=== PATIENT | male | born 1960 | race Caucasian/White ===

== ENCOUNTER 2017-01-03 18:18 | Inpatient (IN) | payer MEDICARE, BC ==
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
--- NOTE | ~2017-01-03 | A ---
[facility] Nutrition Therapy DATE: 01/04/17 Patient: SUNSHINE CARTER Physician: BENITO Address: [address] [place] [address] RD Room/Bed: [address], Zip: [place] [address] Admit Date: 01/03/17 Date of : 60 Height: 5 7 Weight: 171 78 NUTRITIONAL ASSESSMENT: REASON: NPO IN ICU ASSESSMENT PT IS 56 Y.O. MALE ADMITTED FOR HEPATIC ENCEPHALOPATHY PMH: PAST ETOH ABUSE, ESOPHAGITIS, RECURRENT HEPATIC ENCEPHALOPATHY, COPD, HTN, GERD, CKD, PUD, HEPATITIS C, CIRRHOSIS, SEIZURES Anthropometrics: 5'9" (PER RD OBSERVATION), WT: 174# (79 KG), BMI: 25.7 -MULTIPLE HEIGHTS NOTED: 5'7", 6'0" Labs: BUN: 65, CREAT: 2.8, ALB: 3.2, NA+:146, GFR: 24.1 Meds: PROPOFOL, NACL, PROTONIX, LACTULOSE I/O & Bowel function: 633/820; ORAL NG TUBE IN PLACE Skin Integrity: PEDAL/ANKLE TRACE EDEMA Estimated Nutrition Needs: 1581-4311 KCAL (25-30 KCAL/KG BW) 79-102 G PRO (1.0-1.3 G PRO/KG BW) FLUIDS CONSISTENT W/KCAL NEEDS OR MANAGE PER MD Assessment: CHART REVIEWED AND EVENTS NOTED. PT SEEN FOR NPO IN ICU ASSESSMENT. PT CURRENTLY INTUBATED AND SEDATED (W/PROPOFOL AT RATE OF 16.3 ML/HR PROVIDING ~430 KCAL FROM LIPIDS). PER RN AND CHART, PT FOUND DOWN AT HOME, ADMITTED FOR DX ABOVE. NO FAMILY IN ROOM AT THIS TIME. RD TO FOLLOW. SEE RECOMMENDATIONS BELOW. NO CURRENT PLANS IN PLACE FOR ALTERNATIVE NUTRITION SUPPORT AT THIS TIME. Dx: INADEQUATE ORAL INTAKE R/T DX, CURRENT CONDITION AEB NPO STATUS, PT INTUBATED AND SEDATED. Intervention: 1. NPO Monitoring, Evaluation and Goals: 1. ENTERAL NUTRITION; PROVIDE ~80-100% ESTIMATED NUTRIENT NEEDS 2. ORAL INTAKE; ADVANCE DIET PER ENVIRONMENTAL SERVICE AIDE/TOLERATE DIET W/NO C/O N/V/D (PO>50%) 3. LABS; WNL MONITOR: -WEIGHTS [facility] Nutrition Therapy DATE: 01/04/17 Patient: SUNSHINE CARTER Physician: BENITO Address: [address] Room/Bed: [address], Zip: [place] [address] Admit Date: 01/03/17 Date of : [birth year] Height: 5 7 Weight: 171 78 -PLANS FOR SUPPORT -SEDATION RATE -LABS Recommendations: 1. ONCE MEDICALLY FEASIBLE AND PT EXTUBATED, ADVANCE DIET PER ENVIRONMENTAL SERVICE AIDE + 2 GM NA/LOW FAT DIET 2'PMH 2. IF PT REMAINS INTUBATED FOR >24 HOURS, RECOMMEND TO BEGIN ALTERNATIVE NUTRITION SUPPORT OF JEVITY 1.5 @ 20 ML/HR, ADVANCE 10 ML q 6 HOURS TO GOAL RATE OF 60 ML/HR -PROVIDES 2160 KCAL, 92 G PRO, 1094 ML FREE H20 ADD FREE H20 FLUSHES PER MD RD WILL F/U PER PROTOCOL PT IS SEVERELY COMPROMISED Respectfully, SLOANE ARENAS MS, RD, LD Food and Nutritional Services [facility] cc: client file
--- NOTE | ~2017-01-03 | DS ---
Unit #: [id number] #: [id number] Patient: SUNSHINE CARTER [id number] [address] [address] [id number] I MR#: [id number] NAME: SUNSHINE CARTER ROOM: 572 Age: 56 Sex: M Admission Date: 01/03/2017 : 1960 Discharge Date: 01/08/2017 Attending Physician: Sean Jeter M.D. Primary Care Physician: Cecilio Andujar M.D. DISCHARGE SUMMARY PRINCIPAL DISCHARGE DIAGNOSES 1. Recurrent hepatic encephalopathy. 2. Possible community-acquired pneumonia with Enterobacter cloacae. 3. Acute on chronic kidney disease stage 3. 4. Anemia. 5. Thrombocytopenia. 6. Chronic low back pain. 7. Chronic insomnia. 8. Chronic tobacco use. 9. Respiratory failure, acute. 10. History of hepatitis C. 11. Cirrhosis of the liver. 12. Gallstones. 13. Osteoporosis. 14. Benign prostatic hypertrophy. 15. History of peptic ulcer disease. PROCEDURES 1. Right internal jugular central line placement on 01/03/2017. 2. Endotracheal intubation on 01/03/2017. CONSULTANTS 1. Dr. Jordan Saavedra - Renal Services. 2. Dr. Mcgregor - Pulmonary Services. 3. Dr. Prasad - GI Services. REASON FOR HOSPITALIZATION The patient is a 56-year-old white male with a history of recurrent hepatic encephalopathy, history of noncompliance with medications, cirrhosis of the liver, hepatitis C treated, chronic low back pain, tobacco use, chronic insomnia, chronic anemia, chronic thrombocytopenia, gallstones, history of peptic ulcer disease, osteoporosis, BPH. He apparently had some nausea, vomiting and diarrhea for which he had held his lactulose for a few days. He was then found down by his family at home and was brought to the emergency room obtunded. Ammonia level was over 400. He had acute kidney injury and tachycardia. Central line was placed. Lactulose was placed per NG-tube. He was intubated, admitted to the ICU. On admission, his cardiac enzymes were normal. Ammonia level was 416. CO2 was 13, BUN 73, creatinine 3.8. GFR of 16.7. Alcohol level was 5. Hemoglobin 12. Coags normal. Urine drug screen positive for benzos and opiates which he is on at home. Urinalysis showed 1+ drug and some hyaline crystals. Chest x-ray showed worsening patchy alveolar disease. Unit #: [id number] #: [id number] Patient: SUNSHINE CATRER CT scan of the head showed no active disease. EKG showed normal sinus rhythm with a T wave abnormality. The patient was started empirically on IV fluids, ventilator support, IV proton pump inhibitors. Urine was sent for creatinine, sodium and CPK level was checked. Lactic acid was checked as well. He was placed on SCDs for DVT prophylaxis. Nephrology, GI and pulmonary services were consulted. He was started on empiric Zosyn for community-acquired pneumonia. He was given Xifaxan and lactulose per his NG-tube. The patient quickly improved. Ammonia fell quickly. Lactic acid was normal. CPK was 372. Urine sodium was 24, urine creatinine was 202. Blood cultures remained no growth to date. The patient was extubated on the . Ammonia level continued to improve. Renal ultrasound was performed which showed no hydronephrosis. There was a 9 mm cyst in the left kidney. Sputum culture grew Enterobacter cloacae which was sensitive to Zosyn as well as multiple other antibiotics. He was eventually switched to doxycycline p.o. Followup chest x-ray showed no change. His ammonia level this morning is 21 which is fairly stable. His GFR is normal at 83. Sodium slightly low at 133, CO2 is 19. CBC is normal except for hemoglobin of 10.4 and platelet count of 90,000. He is being discharged home. He is to follow up with Dr. Andujar in one week. He is on a 2 g sodium diet. 1. He was given a prescription for doxycycline 100 mg b.i.d. for an additional six days for a full ten day course. 2. Lactulose 30 mL p.o. t.i.d. 3. Xifaxan 550 mg b.i.d. 4. Furosemide 40 mg daily p.r.n. for edema. 5. Multivitamins one daily. 6. It was advised that his oxycodone and Ambien be discontinued. 7. He is on milk thistle 200 mg daily. 8. Protonix 40 mg daily. 9. Calcium plus D, one p.o. b.i.d. 10. B12 1000 mcg daily. 11. D3 1000 units daily. Need a followup CBC and BMP in the office with Dr. Andujar. He is to follow up with Dr. Prasad per his own instructions. Dictated by... Sean Jeter M.D. RISSA/olive TD: 01/09/2017 10:58 JOB #: [id number] DISCHARGE SUMMARY Page 1 of 1 X Sean Jeter MD X DISCHARGE SUMMARY
--- NOTE | ~2017-01-03 | HP ---
Unit #: [id number] #: [id number] Patient: SUNSHINE CARTER [id number] [address] [address] [id number] I MR#: [id number] NAME: SUNSHINE CARTER ROOM: CIC2 Age: 56 Sex: M Admission Date: 01/03/2017 : 1960 Attending Physician: Sean Jeter M.D. Primary Care Physician: Cecilio Andujar M.D. HISTORY AND PHYSICAL HISTORY OF PRESENT ILLNESS This is a 56-year-old white male with history of hepatic encephalopathy - recurrent, history of noncompliance with medications, cirrhosis of the liver, hepatitis C - treated, chronic low back pain, tobacco use, chronic insomnia, chronic anemia, chronic thrombocytopenia, gallstones, history of peptic ulcer disease, osteoporosis and BPH. Apparently was found down by his family at home, brought to the emergency room, obtunded. Ammonia level was over 400, acute kidney injury, vital signs essentially stable except for tachycardia. Patient placed on the ventilator. Central line, NG tube, lactulose per NG tube. Admitted to the ICU. Currently appears to be stable. Weaning off the vent, but the patient is still obtunded. ALLERGIES He has no known medical allergies. MEDICATIONS Medications are unknown, as we are unable to get it from the patient. When he was discharged last admission in October of this year, his medicines were milk thistle 200 mg daily, lactulose 40 mg t.i.d., magnesium oxide 400 mg t.i.d., Xifaxan 550 mg b.i.d., Ambien 10 mg p.o. q.h.s. p.r.n., furosemide 40 mg daily p.r.n., multivitamin 1 daily, oxycodone 10 mg q.6 hours p.r.n., Aldactone 100 mg daily p.r.n., Protonix 40 mg b.i.d., calcium b.i.d., vitamin B12 - 1,000 mcg daily, vitamin D3 - 1,000 units daily. PAST MEDICAL HISTORY 1. History of recurrent hepatic encephalopathy. 2. History of noncompliance with medications. 3. Cirrhosis. 4. Hepatitis C, treated. 5. Chronic thrombocytopenia. 6. Chronic anemia. 7. Alcohol withdrawal seizures in the past. 8. Chronic disequilibrium syndrome. 9. COPD. 10. Tobacco use. 11. Chronic insomnia. 12. GE reflux disease. 13. Peptic ulcer disease. 14. Osteoporosis. 15. Chronic low back pain. 16. Cholelithiasis. PAST SURGICAL HISTORY Unit #: [id number] #: [id number] Patient: SUNSHINE CARTER 1. Bilateral blepharoplasty. 2. Left total knee replacement. 3. Right elbow laceration. 4. Left elbow laceration. 5. Tonsillectomy. 6. Left shoulder fracture repair. 7. Left hip replacement. SOCIAL HISTORY Single. Smokes a pack of cigarettes daily. No alcohol or street drug use. FAMILY HISTORY Family history is noncontributory. PHYSICAL EXAM GENERAL: Again, he is obtunded. VITALS: He has remained afebrile. His initial pulse was 115; currently it is in the 70s and regular. Initially respiratory rate was 22 in the ER; currently 18 on the vent. Blood pressure in the ER was 162/87; currently 145/88 with an O2 sat of 100%. In the ER his O2 sat was 99% on 100% non-rebreather mask. HEENT: Unremarkable, except for tubes being place. NECK: Neck was supple without JVD, bruits, adenopathy or thyromegaly. CHEST: Clear to auscultation. CARDIOVASCULAR: Heart has a regular rate and rhythm without any murmurs, rubs or gallops. ABDOMEN: Abdomen was soft, nondistended with hyperactive bowel sounds and no hepatosplenomegaly. EXTREMITIES: Extremities showed no clubbing, cyanosis or edema. SCDs are on. /RECTAL: Deferred. NEUROLOGIC: Exam is unobtainable, although I am not able to get any asterixis. DIAGNOSTIC STUDIES LABORATORY: Cardiac enzymes normal x1 set. Ammonia level 416. Original CO2 was 13, currently it is 19. BUN was 73, now 65. Creatinine 3.8, now 2.8. GFR was 16.7, now 24.1. Alcohol level was 5. Hemoglobin 12. Coags normal. Urine drug screen positive for benzodiazepines and opiates. Urinalysis - 1+ blood, crystals. IMAGING: Chest x-ray - ET tube okay. Worsening patchy alveolar disease. CT scan of the head reportedly shows no active disease. CARDIOVASCULAR: EKG - Normal sinus rhythm, T abnormality. IMPRESSION 1. Recurrent hepatic encephalopathy. 2. Acute kidney injury. 3. Cirrhosis. 4. History of hepatitis C. 5. Chronic anemia. 6. Chronic thrombocytopenia. 7. BPH. 8. Tobacco use. 9. Chronic low back pain. 10. History of peptic ulcer disease. Unit #: [id number] #: [id number] Patient: SUNSHINE CARTER 11. Osteoporosis. 12. History of noncompliance. 13. Microscopic hematuria with positive blood, dipstick with negative microscopic evaluation for RBCs. PLAN Vent support. IV fluids. IV proton pump inhibitors. Check urine for creatinine, urine sodium, CPK. Recheck the ammonia level, lactic acid level. SCDs for DVT prophylaxis. Nephrology, GI and pulmonary services have been consulted. He is on empiric antibiotics. Will give Xifaxan and lactulose per NG tube and follow labs. Dictated by Sean Jeter M.D. RISSA/negrita TD: 01/04/2017 07:45 JOB #: [id number] HISTORY AND PHYSICAL Page 1 of 1 X Sean Jeter MD X HISTORY AND PHYSICAL
--- NOTE | ~2017-01-03 | CO ---
Unit #: [id number] #: [id number] Patient: SUNSHINE CARTER [id number] [address] [place], [place] [address] [id number] MR#: [id number] NAME: SUNSHINE CARTER ROOM: CIC2 Age: 56 Sex: M Admission Date: 01/03/2017 : 1960 Attending Physician: Sean Jeter M.D. Primary Care Physician: Cecilio Andujar M.D. Consultation Date: 01/04/2017 CONSULTATION REPORT REASON FOR CONSULTATION Renal failure. Thank you very much for asking us to see this patient in consultation. HISTORY OF PRESENT ILLNESS This patient is a 56-year-old gentleman, who apparently was found unresponsive at home, who has a history of underlying cirrhosis felt secondary to hepatitis C although treated, also history of EtOH abuse in the past, although apparently none recently, who upon presentation noted to have BUN and creatinine 73 and 3.8. Because of this, we were asked to see the patient. The patient was started on fluids. He subsequently was intubated on the ventilator currently. No family members available and the patient is unresponsive. PAST MEDICAL HISTORY History of hepatitis C, history of cirrhosis, history of hepatic encephalopathy, history of anemia, history of thrombocytopenia, history of gastroesophageal reflux disease, history of cholelithiasis, history of peptic ulcer disease, history of COPD, history of BPH, history of EtOH, withdrawal seizures in the past, history of chronic back pain, history of multiple joint surgeries, history of noncompliance to medications. ALLERGIES No known drug allergies. SOCIAL HISTORY Positive smoker. No alcohol recently. No IV drugs. CURRENT MEDICINES Include lactulose, propofol, fentanyl. He is on half-normal saline with 1.5 amps of bicarb at 100 mL an hour. He is on Protonix and Zosyn. REVIEW OF SYSTEMS Unable to obtain. PHYSICAL EXAMINATION VITAL SIGNS: T-max 99, pulse 71 to 114, systolic blood pressure 112 to 162 over 60s to 80s. CVP is running 4 to 6. HEENT: Pupils are equal, round, and reactive to light. He is orally intubated. NECK: Supple. No JVD. CARDIAC: He is without a rub. No S3 or S4. LUNGS: Sound fairly clear bilaterally, anterior, and laterally. Unit #: [id number] #: [id number] Patient: SUNSHINE CARTER ABDOMEN: Overweight. Bowel sounds positive. Nontender. Soft. EXTREMITIES: No lower extremity swelling. Pulses are intact in lower extremities. JOINTS: No joint pain, joint swelling. SKIN: No acute rashes. NEUROLOGIC: Appears to be intact motor and sensory grossly. : Perea catheter is in place. DIAGNOSTIC STUDIES LABORATORY RESULTS: UA shows specific gravity of 1.02, no protein, 2 to 5 rbc's, 0 to 2 wbc's, 1+ blood. CPK was just ordered and is pending. ABG showed a pH of 7.489, pCO2 of 25, pO2 of 29, 40%. Sodium this morning is 146, potassium 4.1, chloride 117, bicarb is 19, BUN 65 and creatinine 2.8 down from 73 and 3.8, glucose is 106, albumin is 3.2. In October, when he was discharged from the hospital, he had a creatinine 1.1. Over the last 2 years, it has ranged in 1.1 to 1.9 and overall it looks like it is around 1 to 2 plus. His ammonia level is 416. His hemoglobin 11.4, white count 10,000, platelets 116,000. INR is 1.2. ASSESSMENT AND PLAN 1. Acute kidney injury in this gentleman with increased BUN and creatinine although this is actually improving now. He has a Perea catheter in place with good urine output. He is on IV fluids with bicarb drip. Certainly, I think he probably has a combination of volume depletion plus or minus acute tubular necrosis as cause of his renal failure. Blood cultures are pending. We will continue IV fluids for now. We will check urine sodium, urine eosinophils. Check a renal ultrasound. Otherwise, continue current treatment. We will check full set of labs in the morning. I agree with checking a CPK to rule out rhabdo since he was found down and he had 1+ blood on his urinalysis with only 2 to 5 rbc's. We will continue bicarb drip and will follow. 2. History of cirrhosis/hepatitis C. 3. Hepatic encephalopathy. 4. Respiratory failure, rule out sepsis. Dictated by..Avery Saavedra M.D. TAWNYA/ruddy TD: 01/05/2017 03:24 JOB #: [id number] CONSULTATION REPORT Page 1 of 1 X Mingo Saavedra MD CONSULTATION REPORT
--- NOTE | ~2017-01-03 | CT71 ---
[facility] A Service of [facility] RADIOLOGY TEXT RESULTS PATIENT: SUNSHINE CARTER LOCATION: [facility] 572-01 : 60 UNIT #: [id number] AGE: [address]: Sean Jeter MD SEX: M ORDER DR: [id number] [facility]. [place], [place] [address] [id number] I MR#: [id number] Acc #: [id number] NAME: SUNSHINE CARTER : 1960 SEX: M STUDY DATE/TIME: 01/03/2017 15:29 UNIT: [facility] ROOM: [facility] STUDY DESCRIPTION: CT Head Wo Contrast Attending Physician: Sean Jeter M.D. Ordering Physician: Cecilio Stoll M.D. Primary Care Physician: Cecilio Andujar M.D. MEDICAL IMAGING REPORT This report is preliminary unless electronic signature is present EXAM CT head without contrast DATE OF EXAMINATION 01/03/2017 HISTORY On the ventilator. Sedated. Unresponsive, found down today. Hepatitis C, cirrhosis and hypertension. COMPARISON Noncontrast CT head 10/24/2016. TECHNIQUE This CT exam was performed with one or more of the following radiation dose reduction techniques: automatic exposure control, adjustment of mA and/or kV according to patient size, and iterative reconstruction. FINDINGS Study is degraded by motion, necessitating repeated attempts at imaging. Allowing for significant motion degradation, no acute intracranial hemorrhage, mass lesion, mass effect, midline shift or evidence of evolving infarct. Mild atrophy. No displaced calvarial fracture identified. Right sphenoid sinus disease. Mastoid air cells appear clear. Patient is orally intubated. IMPRESSION 1. The study is significantly degraded by motion despite repeated attempts at imaging. The technologist states the patient is unable to control tremors. No gross acute intracranial findings are identified. Recommend repeat imaging when the patient is able to cooperate. [facility] A Service of [facility] / [facility] RADIOLOGY TEXT RESULTS PATIENT: SUNSHINE CARTER LOCATION: [facility] 572-01 : [birth year] UNIT #: [id number] AGE: [address]: Sean Jeter MD SEX: M ORDER DR: 2. Mild atrophy. 3. Mild right sphenoid sinus disease. Dictated by... Ana Alfonso M.D. THIS IS AN ELECTRONICALLY VERIFIED REPORT Ana Alfonso M.D. at 01/07/2017 8:37 AM MARCELA/roberta TD: 01/03/2017 17:36 JOB #: [id number] MEDICAL IMAGING REPORT Page 1 of 1 COPY
--- NOTE | ~2017-01-03 | CR72 ---
[facility] A Service of [facility] RADIOLOGY TEXT RESULTS PATIENT: SUNSHINE CARTER LOCATION: [address] : [birth year] UNIT #: [id number] AGE: [address]: Sean Jeter MD SEX: M ORDER DR: [id number] [facility] [address] [facility]. [place], [place] [address] [id number] I MR#: [id number] Acc #: [id number] NAME: SUNSHINE CARTER : 1960 SEX: M STUDY DATE/TIME: 01/05/2017 5:11 UNIT: [facility] ROOM: [facility] STUDY DESCRIPTION: CR Chest Single View Portable Attending Physician: Sean Jeter M.D. Ordering Physician: Fidencio Mcgregor M.D. Primary Care Physician: Cecilio Andujar M.D. MEDICAL IMAGING REPORT This report is preliminary unless electronic signature is present EXAM Portable chest, 01/05/2017 HISTORY Respiratory failure. Shortness of air for 3 days. Ventilator. COMPARISON STUDIES 01/03/2017 FINDINGS Two frontal views of the chest demonstrate the patient significantly rotated to the right. Tubes and lines appear stable. No pneumothorax. Mild bilateral interstitial opacities are unchanged. Heart size and mediastinum are stable. IMPRESSION 1. Rotated exam. Tubes and lines appear stable. No pneumothorax. 2. No interval change in mild bilateral interstitial opacities. Dictated by... Hernandez Pineda M.D. THIS IS AN ELECTRONICALLY VERIFIED REPORT Hernandez Pineda M.D. at 01/06/2017 8:11 AM KYLE/leena TD: 01/06/2017 00:02 JOB #: [id number] MEDICAL IMAGING REPORT Page 1 of 1 COPY
--- NOTE | ~2017-01-03 | CR72 ---
[facility] A Service of [facility] RADIOLOGY TEXT RESULTS PATIENT: SUNSHINE CARTER LOCATION: [facility] 572-01 : 60 UNIT #: [id number] AGE: [address]: Sean Jeter MD SEX: M ORDER DR: [id number] [address] [place], [place] [address] [id number] I MR#: [id number] Acc #: [id number] NAME: SUNSHINE CARTER : 1960 SEX: M STUDY DATE/TIME: 01/06/2017 3:29 UNIT: [facility] ROOM: [facility] STUDY DESCRIPTION: CR Chest Single View Portable Attending Physician: Sean Jeter M.D. Ordering Physician: Fidencio Mcgregor M.D. Primary Care Physician: Cecilio Andujar M.D. MEDICAL IMAGING REPORT This report is preliminary unless electronic signature is present EXAM Portable chest HISTORY Respiratory failure for 3 days. Endotracheal tube removal. FINDINGS Today's portable view of the chest is compared with yesterday's study. The endotracheal tube has been removed. There is mild interstitial prominence without focal infiltrates and the central venous catheter is in good position. Dictated by... Floyd Singh M.D. THIS IS AN ELECTRONICALLY VERIFIED REPORT Floyd Snigh M.D. at 01/06/2017 9:54 PM FEL/psc TD: 01/06/2017 19:13 JOB #: [id number] MEDICAL IMAGING REPORT Page 1 of 1 COPY
--- NOTE | ~2017-01-03 | EKG ---
PATIENT: SUNSHINE CARTER UNIT #: [id number] Ventricular Rate: 94 BPM Atrial Rate: 94 BPM P-R Interval: 158 ms QRS Duration: 84 ms Q-T Interval: 380 ms QTC Calculation(Bezet): 475 ms P Drummond: 84 degrees Calculated R Drummond: 76 degrees Calculated T Drummond: -45 degrees Diagnosis Line: Normal sinus rhythm Diagnosis Line: Abnormal QRS-T angle, consider primary T wave Diagnosis Line: abnormality Diagnosis Line: Abnormal ECG Diagnosis Line: When compared with ECG of 24-OCT-2016 16:51, Diagnosis Line: No significant change was found Diagnosis Line: Confirmed by JOSHUA BAGLEY MD ([id number]) on 01/04/2017 Diagnosis Line: 6:17:44 AM INTERPRETING MD: YUDI BHAKTA
--- NOTE | ~2017-01-03 | CR72 ---
[facility] A Service of [facility] RADIOLOGY TEXT RESULTS PATIENT: SUNSHINE CARTER LOCATION: CICCU2 CICCU10-30 : 60 UNIT #: [id number] AGE: [address]: Sean Jeter MD SEX: M ORDER DR: [id number] [facility] [address] [facility]. [place], [place] [address] [id number] I MR#: [id number] Acc #: [id number] NAME: SUNSHINE CARTER : 1960 SEX: M STUDY DATE/TIME: 01/03/2017 16:10 UNIT: [facility] ROOM: 64118 STUDY DESCRIPTION: CR Chest Single View Portable Attending Physician: Sean Jeter M.D. Ordering Physician: Cecilio Stoll M.D. Primary Care Physician: Cecilio Andujar M.D. MEDICAL IMAGING REPORT This report is preliminary unless electronic signature is present EXAM Chest x-ray single view portable HISTORY Altered mental status, unresponsive, endotracheal tube. Started today. ET tube placement. TECHNIQUE Single frontal portable view of the chest timed 16:10 on 01/03/2017 compared to 10/24/2016. FINDINGS Interval placement of an endotracheal tube which terminates about 2-3 cm above the booker. Heart size is top normal. There is some apparent underlying chronic lung disease and I believe some superimposed thickening of the peribronchial vascular soft tissues lower lungs and some patchy alveolar disease. There is no pneumothorax. No pleural effusion suspected. IMPRESSION 1. Endotracheal tube satisfactory. 2. Interval worsening in appearance of the lung parenchymal markings with thickening of peribronchial vascular soft tissues lower lungs and probably some patchy alveolar disease. Clinical correlation and follow up suggested. No congestive failure, pneumothorax or pleural effusion suspected. Dictated by... Xiomara Braga M.D. [facility] A Service [facility] RADIOLOGY TEXT RESULTS PATIENT: SUNSHINE CARTER LOCATION: CICCU2 CICCU2 : 60 UNIT #: [id number] AGE: [address]: Sean Jeter MD SEX: M ORDER DR: THIS IS AN ELECTRONICALLY VERIFIED REPORT Xiomara Braga M.D. at 01/04/2017 8:06 AM SAC/pcl TD: 01/03/2017 20:12 JOB #: [id number] MEDICAL IMAGING REPORT Page 1 of 1 COPY
--- NOTE | ~2017-01-03 | FU ---
[facility] Nutrition Therapy DATE: 01/07/17 Patient: SUNSHINE EMMA Physician: BENITO Address: [address] [place] [address] RD Room/Bed: [address] [place] [address], Zip: [place] [address] Admit Date: 01/03/17 Date of : 60 Height: 5 7 Weight: 191 87 NUTRITION MONITORING/FOLLOW-UP: Reason: Nutrition follow-up Anthropometrics: Ht: 5'9" Adm wt: 79.1 kg (174#) BMI: 25.7 Current wt: 86.8 kg (191#) Labs: Ca++ 7.8, Alb 2.5, NH3+ 39, Phos 1.8 Meds: Vitamin B12, Protonix, D5% I&O's: 1249/774, last BM 01/07 (diarrhea) Skin: Stasis dermatitis (BLE/gonzalez), bruising (BUE), scratches (BLE, abd), no edema noted Assessment: Chart reviewed, events noted. Pt was transferred from ICU to [facility] yesterday (01/06). Pt is currently on a 2 gm sodium diet. Pt reported feeling very well and having a great appetite, consuming ~75-100% of meals. Pt reported no N/V. See recommendations below. Dx: Inadequate oral intake RT Dx, clinical condition AEB NPO status, pt intubated and sedated. -RESOLVED New Dx: Undesirable food choices RT Dx, PMH AEB elevated ammonia levels. Intervention: 1. 2 gm sodium diet Monitoring, Evaluation and Goals: 1. PO intake; consume >75% of meals -MET 2. Labs; WNL -IN PROGRESS Recommendations: 1. Add low fat diet restriction d/t hepatic encephalopathy. Status: Pt is at a mild nutritional risk. RD will f/u per protocol. Respectfully, [facility] Nutrition Therapy DATE: 01/07/17 Patient: SUNSHINE CARTER Physician: BENITO Address: [address] Room/Bed: [address] [place] [address], Zip: [place] [address] Admit Date: 01/03/17 Date of : [birth year] Height: 5 7 Weight: 191 87 Sri Baldwin, Power Plant Superintendent Adriana Garrison MS, RD, LD Food and Nutritional [facility] cc: client file
--- NOTE | ~2017-01-03 | US77 ---
[facility] A Service of [facility] RADIOLOGY TEXT RESULTS PATIENT: SUNSHINE CARTER LOCATION: [address] : [birth year] UNIT #: [id number] AGE: [address]: Sean Jeter MD SEX: M ORDER DR: [id number] [facility] [address] [facility]. [place], [place] [address] [id number] I MR#: [id number] Acc #: [id number] NAME: SUNSHINE CARTER : 1960 SEX: M STUDY DATE/TIME: 01/04/2017 20:17 UNIT: CICCU2 ROOM: [facility] STUDY DESCRIPTION: US Kidney Bilateral Complete Attending Physician: Sean Jeter M.D. Ordering Physician: Coby Saavedra M.D. Primary Care Physician: Cecilio Andujar M.D. MEDICAL IMAGING REPORT This report is preliminary unless electronic signature is present EXAM Bilateral renal ultrasound INDICATIONS Elevated BUN and creatinine with a BUN of 65 and creatinine of 2.8, acute renal failure. COMPARISON CT scan 03/09/2016. No renal stones visible. FINDINGS Right kidney is 10.3 cm in length. There is no masses or hydronephrosis visible but gallbladder is visualized gallstones are present. Bladder is collapsed around a Perea catheter. Left kidney is about the same size. It seems to have a small calcification in the lower pole possibly representing a stone and there is a probable cyst measuring 9 mm in diameter. IMPRESSION 1. No hydronephrosis on either side and the kidneys are normal in size. 2. The Perea catheter is in the bladder and the bladder is collapsed. 3. There is a hypoechoic 9 mm area seen in the left kidney suggesting a cyst and there may be a small stone in the left kidney. No stones were visible 03/09/[address] scan. Dictated by... Floyd Singh M.D. THIS IS AN ELECTRONICALLY VERIFIED REPORT Floyd Singh M.D. at 01/05/2017 8:04 PM FEL/oli TD: 01/05/2017 19:04 [facility] Service of [facility] RADIOLOGY TEXT RESULTS PATIENT: SUNSHINE CARTER LOCATION: CIC2 CICCU2-07 : 60 UNIT #: [id number] AGE: [address]: Sean Jeter MD SEX: M ORDER DR: JOB #: [id number] MEDICAL IMAGING REPORT Page 1 of 1 COPY
--- NOTE | ~2017-01-03 | CO ---
Unit #: [id number] #: [id number] Patient: SUNSHINE HEMPHILL [id number] [place], [place] [address] [id number] I MR#: [id number] NAME: SUNSHINE HEMPHILL ROOM: [facility] Age: 56 Sex: M Admission Date: 01/03/2017 : 1960 Attending Physician: Sean Jeter M.D. Primary Care Physician: Cecilio Andujar M.D. Consultation Date: 01/04/2017 CONSULTATION REPORT REASON FOR CONSULTATION Respiratory failure, mechanical ventilation. HISTORY OF PRESENT ILLNESS A 56-year-old gentleman with end-stage cirrhosis and hepatic encephalopathy with possible ongoing alcohol use and noncompliance with medication. He apparently was found obtunded by his family. EMS was called, ultimately intubated and currently is in the intensive care unit and cannot add to the history. He also had acute kidney injury and is currently on a bicarb drip. Renal is following. He apparently is quite sedated, but remains on a fentanyl drip and propofol drip. PAST MEDICAL HISTORY Remarkable for hepatic encephalopathy, cirrhosis, hepatitis C, chronic pain, chronic thrombocytopenia followed by Dr. Bardales, history of ulcer disease and esophagitis, tobacco use but no definite COPD identified, history of bacteremia and fungemia, past hospitalizations in 10/2016, apparently has some degree of insomnia and on Ambien. MEDICATIONS At home, no formal med rec sheet is available. Apparently, there has been some confusion long-term with his medications at home, he is on lactulose b.i.d. and in fact he had diarrhea and that dose was decreased. He according to the EHR on magnesium, Xifaxan, Ambien, Lasix, oxycodone 10 mg q.i.d., Aldactone, Protonix, and a variety of vitamin supplements. ALLERGIES No known medical allergies. SOCIAL HISTORY He continues to smoke. He lives at home. FAMILY HISTORY Unobtainable. REVIEW OF SYSTEMS Unobtainable. PHYSICAL EXAMINATION GENERAL: Reveals the patient, who is obtunded on the ventilator. VITAL SIGNS: He is afebrile, pulse 82, respiratory rate is 14, blood pressure is 118/50. He is 5 feet 7 inches, 171 pounds. HEENT: Pupils are equal, round, and reactive to light. Sclerae anicteric. Head, atraumatic. Unit #: [id number] #: [id number] Patient: SUNSHINE HEMPHILL NECK: Supple. No supraclavicular or cervical adenopathy appreciated. There may be a node in his left supraclavicular fossa, but not definitive. CHEST: Somewhat limited exam. Decreased breath sounds. No genoveva wheeze or consolidation. CARDIAC: Reveals regular rate and rhythm. No pathologic murmur, rub, or gallop. ABDOMEN: Soft and nontender. No hepatomegaly or rebound. EXTREMITIES: Reveal no clubbing, cyanosis, or edema. No calf tenderness. SKIN: Warm and dry without rash or diaphoresis. NEUROLOGIC: He is obtunded and cannot cooperate with full neurologic exam. Apparently off sedation, he will become dyssynchronous with the ventilator, is what I was told by nursing staff. DIAGNOSTIC STUDIES IMAGING STUDIES: Chest x-ray, no definite focal infiltrates. LABORATORY RESULTS: Arterial blood gas originally pH 7.34, pCO2 of 27, pO2 of 228 on assist control and 100%. Repeat pH 7.48, pCO2 of 25, PO2 of 229 on assist control of 12 breathing 14, tidal volume is 600, 40%, 5 of PEEP. His creatinine was 3.8, now it is 2.8, sodium 146, venous bicarb 19. He has non-gap acidosis. BNP is 235. INR normal. White blood cell count 10.9, hemoglobin 11.4, platelet count 116. Tox screen positive benzodiazepines, opiates. Urinalysis remarkably unremarkable. Blood cultures pending. CARDIOVASCULAR STUDIES: EKG; nonspecific ST-T wave changes particularly inferiorly. IMPRESSION 1. Respiratory failure, most likely secondary to his profound hepatic encephalopathy with an ammonia level of 416. 2. Cirrhosis hepatitis C, possible alcohol component. Alcohol level is positive. 3. Acute kidney injury. 4. Non-gap acidosis. 5. Chronic narcotic and Ambien use and possible benzodiazepine use per tox screen. 6. Thrombocytopenia. 7. History of ulcer disease, esophagitis. 8. Tobacco use. No active wheezing. 9. History of bacteremia and fungemia in the recent past. PLAN Mechanical ventilatory support with appropriate adjustments. No bicarb is needed from a pulmonary point of view and I will leave IV fluid management to Renal. Doubt pneumonia, but will check surveillance cultures. He currently is on Zosyn and will continue for now. We have no good reason why his ammonia level was so high and decompensated, possibly from decreased dose or noncompliance with lactulose, weaning will be determined by his mental status. Long-term, I would try to avoid sedating medications such as narcotics, benzodiazepines, and Ambien if possible. Thank you very much for allowing me to participate in the care of Mr. Hemphill. Dictated by... Fidencio Mcgregor M.D. Unit #: [id number] #: [id number] Patient: SUNSHINE HEMPHILL SANGEETA/modl TD: 01/05/2017 01:10 JOB #: [id number] Farhat Prasad M.D. CONSULTATION REPORT Page 1 of 1 X Fidencio Mcgregor MD X CONSULTATION REPORT
--- NOTE | ~2017-01-03 | CR72 ---
[facility] A Service of [facility] RADIOLOGY TEXT RESULTS PATIENT: SUNSHINE CARTER LOCATION: [facility] [address]1986-86 : [birth year] UNIT #: [id number] AGE: [address]: Sean Jeter MD SEX: M ORDER DR: [id number] [facility] [address] [facility]. [place], [place] [address] [id number] I MR#: [id number] Acc #: [id number] NAME: SUNSHINE CARTER : 1960 SEX: M STUDY DATE/TIME: 01/03/2017 17:37 UNIT: [facility] ROOM: 50655 STUDY DESCRIPTION: CR Chest Single View Portable Attending Physician: Sean Jeter M.D. Ordering Physician: Cecilio Stoll M.D. Primary Care Physician: Cecilio Andujar M.D. MEDICAL IMAGING REPORT This report is preliminary unless electronic signature is present EXAM Portable chest 01/03 17:37 COMPARISON Same date 1610 hours HISTORY Line placement FINDINGS An AP view is obtained. ET tube remains in good position. NG has been placed with the tip in the stomach. Right IJ line terminates at the cavoatrial junction with no pneumothorax. Chronic lung disease is again noted with no acute findings. CONCLUSION Endotracheal tube, nasoenteric tube and right IJ line in appropriate position. No pneumothorax. Dictated by... Frank Gomez M.D. THIS IS AN ELECTRONICALLY VERIFIED REPORT Frank Gomez M.D. at 01/03/2017 10:17 PM RAH/dannie TD: 01/03/2017 22:05 JOB #: [id number] MEDICAL IMAGING REPORT Page 1 of 1 COPY
[2017-01-03 15:53] LABS: POC - CKMB 4.6 ng/mL (0.0-7.9); POC - TROPONIN <0.05 ng/mL (<=0.05)
[2017-01-03 16:14] LABS: ALBUMIN SERUM 3.7 g/dL (3.5-5.0); BILIRUBIN, DIRECT 0.2 mg/dL (0.0-0.2); BILIRUBIN,INDIRECT 0.6 mg/dL (0.0-0.9); BILIRUBIN,TOTAL 0.8 mg/dL (0.2-2.0); BUN/CREATININE RATIO 19.21; CALCIUM SERUM 9.1 mg/dL (8.4-10.2); CREATININE SERUM 3.8 mg/dL (0.6-1.4); GLOM FILT RATE Estimated 16.7 mL/min (>60); POTASSIUM 4.6 mmol/L (3.5-5.1); PROTEIN TOTAL SERUM 6.8 g/dL (6.0-8.3)
[2017-01-03 16:59] LABS: ARTERIAL BLOOD GAS HCO3 15.3 mmol/L; ARTERIAL BLOOD GAS MET HB 0.8 %sat (0.0-2.0); ARTERIAL BLOOD GAS PCO2 27.8 mmHg (35.0-45.0); ARTERIAL BLOOD GAS pH 7.349 (7.350-7.450)
[2017-01-03 17:01] LABS: ARTERIAL BLOOD GAS ALLEN TEST NORMAL; ARTERIAL BLOOD GAS ART SITE RIGHT RADIAL; ARTERIAL BLOOD GAS VENT MODE AC; ARTERIAL DRAW? YES
[2017-01-03 17:48] LABS: BASOPHIL% 0.4 % (0-2.5); EOSINOPHIL# 0.1 X10e3 (0-0.7); EOSINOPHIL% 1.5 % (0.0-7.0); HEMATOCRIT 35.3 % (38.0-50.0); LYMPHOCYTE# 1.2 X10e3 (1.0-3.5); LYMPHOCYTE% 13.4 % (17.0-45.0); MEAN CELL VOLUME 98.1 FL (83-96); MEAN CORPUSCULAR HEMOGLOBIN 33.3 PG (28-34); MEAN CORPUSCULAR HGB CONC 33.9 g/dL (30-36); MEAN PLATELET VOLUME 7.8 FL (6.5-11.5); MONOCYTE# 1.3 X10e3 (0-1.0); MONOCYTE% 13.9 % (3.0-12.0); NEUTROPHIL# 6.4 X10e3 (1.5-7.1); NEUTROPHIL% 70.8 % (40-75); PLATELET COUNT 154 X10e3 (140-420); RED BLOOD COUNT 3.59 X10e (3.90-5.60); RED CELL DISTRIBUTION WIDTH 13.7 % (11.0-15.5)
[2017-01-03 17:51] LABS: DIFF IND NO
[2017-01-03 18:01] LABS: INR 1.2; PARTIAL THROMBOPLASTIN TIME 25.6 SECONDS (23.5-31.3); PROTHROMBIN TIME (PATIENT) 12.4 SECONDS (9.6-11.5)
[~2017-01-03 18:18] MED LIST: ACETAMINOPHEN PR; AL-MAG HYDROX-S30 M1 PO; AMBIEN CR PO; AMBIEN PO; AMBIEN10 MG GT; AMBIEN10 MG PO; AMBIEN12.5 M1 PO; ANTACID650 MG PO; ATIVAN0.5 MG PO; B-121000 MC2 PO; CALCITRATE + V1 EACH PO; CALCITRATE PO; CARVEDILOL12.5 MG PO; CATAPRES0.1 MG PO; CENTRUM SILVER PO; CHLORDIAZEPOXIDE5 MG PO; CHRONULAC10 GM/151; CITRACAL200 M1 PO; COD LIVER OIL1 CA1 PO; COUMADIN PO; CVS PHARMACY; D3 + K2 DOTS 1,1 TAB PO; DARVOCET-N 1001 TAB PO; DETROL2 M1 PO; DOK100 MG PO; ENALAPRIL MALEA10 MG; ENALAPRIL MALEA10 MG GT; ENALAPRIL MALEA10 MG PO; FAMOTIDINE20 M1 PO; FERRO-TIME325 MG PO; FISH OIL 1,0001 EAC1 PO; FISH OIL 1,0001 EACH PO; FISH OIL 1,001000 M1 PO; FISH OIL 1,001000 MG PO; FISH OIL500 M1 PO; FLOMAX0.4 M1 PO; FOLIC ACID1 MG PO; FOLIC ACID800 MCG PO; FUROSEMIDE40 MG PO; HARVONI PO; HCTZ PO; HYDROCHLOROTH12.5 M1 PO; HYDROCODON-ACE1 EAC5 PO; INCIVEK PO; K-DUR20 ME1 PO; KCL PO; KEPPRA100 MG/ML GT; KEPPRA500 M1 PO; KEPPRA500 MG; KEPPRA500 MG PO; KRISTALOSE20 G/PK1 PO; LACTULOSE; LACTULOSE10 G/15 M1 PO; LACTULOSE10 G/15 M2 PO; LACTULOSE10 G/15 ML GT; LACTULOSE20 GM/30 M PO; LASIX PO; LOPRESSOR PO; LORTAB 5/500 TA1 TA1 PO; LUNESTA1 MG PO; MAG-OX 400400 M1 PO; MAG-OX 400400 MG PO; MAGNESIUM200 MG PO; MAGNESIUM400 M1 PO; MAGNESIUM400 MG PO; MAGOX 400400 MG PO; METHYL GUARD PO; METOPROLOL SUCC50 MG PO; MILK THISTLE1 GM PO; MILK THISTLE200 M1 PO; MILK THISTLE500 MG PO; MULTI VITAMIN1 EACH PO; MULTI-VITAMIN1 EAC1 PO; MULTI-VITAMIN1 TAB; MULTIPLE VITAMI1 T11 PO; MULTIVITAMIN1 UDCAP PO; MULTIVITAMINS1 EAC2 PO; NICOTINE PATCH1 EACH TD; NICOTINE TRANSD21 MG EXT; NORCO 10-325 TA1 TAB PO; NORCO 5/325 TAB1 TAB PO; OS CAL DOB; OS-CAL 500500 MG PO; OXYCODONE H5 MG/5 ML GT; OXYCODONE HCL10 MG; OXYCODONE HCL10 MG PO; PANTOPRAZOLE SO40 MG PO; PEGASYS180 MCG/M1 SQ; PERCOCET 10/31 UDTA1 PO; PERCOCET 10/3251 TAB PO; PERCOCET 5-3251 TAB PO; PHENERGAN12.5 MG PO; PHENERGAN25 M1 PO; PHENERGAN25 MG PO; POTABA500 M1 PO; PRILOSEC PO; PRILOSEC20 MG PO; PROCRIT20000 U/ML IJ; PROTONIX PO; PROTONIX40 MG/BLIS GT; RIBASPHERE200 MG PO; ROXICODONE5 MG PO; SPIRONOLACTONE100 MG PO; SPIRONOLACTONE50 MG PO; TOPROL XL50 MG PO; TYLOX 5-500 CA1 EACH PO; VASOTEC10 MG PO; VASOTEC20 MG PO; VFEND50 MG PO; VIT B-12 PO; VIT D PO; VITAMIN B-121000 MCG PO; VITAMIN B12 PO; VITAMIN B122500 MCG PO; VITAMIN D-32000 UNI1 PO; VITAMIN D31000 UNI1 PO; VITAMIN D32000 UNIT PO; VORICONAZOLE200 MG PO; XIFAXAN550 MG PO; ZINC SULFATE220 M1 PO; ZINC50 M1 PO; ZOLPIDEM TARTRA10 MG PO; ZOLPIDEM TARTRAT5 MG PO; [UNRECOGNIZED DRUG - OTHER] DOB; [UNRECOGNIZED DRUG - OTHER] GT; [UNRECOGNIZED DRUG - OTHER] PO; [UNRECOGNIZED DRUG - OTHER] PO; [UNRECOGNIZED DRUG - OTHER] PO; [UNRECOGNIZED DRUG - OTHER] PO; [UNRECOGNIZED DRUG - OTHER] PO; [UNRECOGNIZED DRUG - OTHER] PO; [UNRECOGNIZED DRUG - OTHER] PO; [UNRECOGNIZED DRUG - OTHER] PO; [UNRECOGNIZED DRUG - OTHER] PO; [UNRECOGNIZED DRUG - OTHER] PO
[2017-01-03 20:20] LABS: AMPHETAMINE NEG (NEG); BARBITURATES NEG (NEG); BENZODIAZEPINES POS (NEG); COCAINE NEG (NEG); MARIJUANA NEG (NEG); OPIATES POS (NEG); TRICYCLIC ANTIDEPRESSANTS NEG (NEG); U METHADONE NEG (NEG)
[2017-01-03 20:58] LABS: URINE SOURCE CLEAN CATCH
[2017-01-03 21:12] LABS: URINE APPEARANCE CLEAR; URINE BILIRUBIN NEG (NEG); URINE BLOOD 1+ (NEG); URINE COLOR YELLOW; URINE GLUCOSE NEG (NEG); URINE KETONE TRACE (NEG); URINE LEUKOCYTE ESTERASE NEG (NEG); URINE NITRATE NEG (NEG); URINE PH 5.5 (5-8); URINE PROTEIN NEG (NEG); URINE UROBILINOGEN 0.2 MG/DL (NEG)
[2017-01-03 21:15] LABS: CULTURE INDICATED? NO; URINE BACTERIA AUWI NEG (NEGATIVE); URINE SQUAMOUS EPITHELIAL CELL NONE SEEN /[HPF]; UWBCS1 AUWI 0-2 (0-5)
[2017-01-04 04:32] LABS: ARTERIAL BLD GAS O2 SATURATION 98.4 % (90.0-100.0); ARTERIAL BLOOD GAS CARBOXY HB 0.4 %sat (0.0-9.0); ARTERIAL BLOOD GAS MET HB 1.3 %sat (0.0-2.0); ARTERIAL BLOOD GAS PCO2 25.1 mmHg (35.0-45.0); ARTERIAL BLOOD GAS pH 7.489 (7.350-7.450)
[2017-01-04 04:36] LABS: ARTERIAL BLOOD GAS ART SITE LEFT FEMORAL; ARTERIAL BLOOD GAS DELIVERY VENT; ARTERIAL BLOOD GAS VENT MODE AC; ARTERIAL DRAW? YES
[2017-01-04 05:46] LABS: BASOPHIL# 0.1 X10e3 (0-0.3); BASOPHIL% 0.8 % (0-2.5); EOSINOPHIL# 0.2 X10e3 (0-0.7); EOSINOPHIL% 1.5 % (0.0-7.0); HEMATOCRIT 33.7 % (38.0-50.0); HEMOGLOBIN 11.4 gm/dL (13.0-16.0); LYMPHOCYTE# 1.5 X10e3 (1.0-3.5); LYMPHOCYTE% 13.4 % (17.0-45.0); MEAN CELL VOLUME 98.8 FL (83-96); MEAN CORPUSCULAR HEMOGLOBIN 33.3 PG (28-34); MEAN CORPUSCULAR HGB CONC 33.7 g/dL (30-36); MEAN PLATELET VOLUME 7.6 FL (6.5-11.5); MONOCYTE# 1.3 X10e3 (0-1.0); MONOCYTE% 11.4 % (3.0-12.0); NEUTROPHIL% 72.9 % (40-75); PLATELET COUNT 116 X10e3 (140-420); RED BLOOD COUNT 3.41 X10e (3.90-5.60); RED CELL DISTRIBUTION WIDTH 13.6 % (11.0-15.5); WHITE BLOOD COUNT 10.9 X10e3 (4.0-10.5)
[2017-01-04 05:59] LABS: DIFF IND NO
[2017-01-04 06:10] LABS: ALBUMIN SERUM 3.2 g/dL (3.5-5.0); BUN/CREATININE RATIO 23.21; CALCIUM SERUM 8.7 mg/dL (8.4-10.2); CREATININE SERUM 2.8 mg/dL (0.6-1.4); GLOM FILT RATE Estimated 24.1 mL/min (>60); POTASSIUM 4.1 mmol/L (3.5-5.1); PROTEIN TOTAL SERUM 5.9 g/dL (6.0-8.3)
[2017-01-04 12:36] LABS: CREATININE,RANDOM URINE 202 mg/dL; SODIUM URINE RANDOM 24 mmol/L
[2017-01-05 03:46] LABS: ARTERIAL BLD GAS O2 SATURATION 98.5 % (90.0-100.0); ARTERIAL BLOOD GAS CARBOXY HB 0.5 %sat (0.0-9.0); ARTERIAL BLOOD GAS HCO3 23.1 mmol/L; ARTERIAL BLOOD GAS MET HB 1.1 %sat (0.0-2.0); ARTERIAL BLOOD GAS PCO2 30.6 mmHg (35.0-45.0); ARTERIAL BLOOD GAS pH 7.486 (7.350-7.450)
[2017-01-05 03:50] LABS: ARTERIAL BLOOD GAS ALLEN TEST NORMAL; ARTERIAL BLOOD GAS ART SITE RIGHT RADIAL; ARTERIAL BLOOD GAS DELIVERY VENT; ARTERIAL BLOOD GAS VENT MODE A/C; ARTERIAL DRAW? YES
[2017-01-05 05:44] LABS: BASOPHIL% 0.4 % (0-2.5); EOSINOPHIL# 0.3 X10e3 (0-0.7); EOSINOPHIL% 3.4 % (0.0-7.0); HEMATOCRIT 31.8 % (38.0-50.0); LYMPHOCYTE# 1.6 X10e3 (1.0-3.5); LYMPHOCYTE% 20.4 % (17.0-45.0); MEAN CELL VOLUME 97.9 FL (83-96); MEAN CORPUSCULAR HEMOGLOBIN 33.8 PG (28-34); MEAN CORPUSCULAR HGB CONC 34.5 g/dL (30-36); MEAN PLATELET VOLUME 7.5 FL (6.5-11.5); MONOCYTE# 1.2 X10e3 (0-1.0); MONOCYTE% 15.3 % (3.0-12.0); NEUTROPHIL# 4.8 X10e3 (1.5-7.1); NEUTROPHIL% 60.5 % (40-75); PLATELET COUNT 111 X10e3 (140-420); RED BLOOD COUNT 3.25 X10e (3.90-5.60); RED CELL DISTRIBUTION WIDTH 13.8 % (11.0-15.5)
[2017-01-05 05:53] LABS: DIFF IND NO
[2017-01-05 06:35] LABS: BILIRUBIN,TOTAL 0.9 mg/dL (0.2-2.0); CALCIUM SERUM 8.4 mg/dL (8.4-10.2); GLOM FILT RATE Estimated 36.2 mL/min (>60); MAGNESIUM 2.2 mg/dL (1.6-3.0); PHOSPHOROUS 3.7 mg/dL (2.5-4.6); POTASSIUM 3.6 mmol/L (3.5-5.1); PROTEIN TOTAL SERUM 5.7 g/dL (6.0-8.3)
[2017-01-05 12:11] LABS: ARTERIAL BLD GAS O2 SATURATION 98.6 % (90.0-100.0); ARTERIAL BLOOD GAS ALLEN TEST NORMAL; ARTERIAL BLOOD GAS ART SITE RIGHT RADIAL; ARTERIAL BLOOD GAS CARBOXY HB 0.3 %sat (0.0-9.0); ARTERIAL BLOOD GAS DELIVERY VENT; ARTERIAL BLOOD GAS MET HB 1.1 %sat (0.0-2.0); ARTERIAL BLOOD GAS PCO2 32.8 mmHg (35.0-45.0); ARTERIAL BLOOD GAS VENT MODE CPAP; ARTERIAL BLOOD GAS pH 7.473 (7.350-7.450); ARTERIAL DRAW? YES
[2017-01-06 04:47] LABS: ARTERIAL BLD GAS O2 SATURATION 94.9 % (90.0-100.0); ARTERIAL BLOOD GAS CARBOXY HB 0.6 %sat (0.0-9.0); ARTERIAL BLOOD GAS HCO3 23.7 mmol/L; ARTERIAL BLOOD GAS MET HB 0.7 %sat (0.0-2.0); ARTERIAL BLOOD GAS PCO2 31.3 mmHg (35.0-45.0); ARTERIAL BLOOD GAS pH 7.487 (7.350-7.450)
[2017-01-06 04:53] LABS: ARTERIAL BLOOD GAS PO2 73.9 mmHg (80.0-100)
[2017-01-06 04:54] LABS: ARTERIAL BLOOD GAS ALLEN TEST NORMAL; ARTERIAL BLOOD GAS ART SITE RIGHT RADIAL; ARTERIAL DRAW? YES
[2017-01-06 05:48] LABS: BASOPHIL% 0.4 % (0-2.5); EOSINOPHIL# 0.5 X10e3 (0-0.7); EOSINOPHIL% 6.4 % (0.0-7.0); HEMATOCRIT 29.4 % (38.0-50.0); HEMOGLOBIN 9.9 gm/dL (13.0-16.0); LYMPHOCYTE# 1.6 X10e3 (1.0-3.5); LYMPHOCYTE% 20.7 % (17.0-45.0); MEAN CELL VOLUME 97.9 FL (83-96); MEAN CORPUSCULAR HEMOGLOBIN 33.1 PG (28-34); MEAN CORPUSCULAR HGB CONC 33.8 g/dL (30-36); MEAN PLATELET VOLUME 7.8 FL (6.5-11.5); MONOCYTE% 13.7 % (3.0-12.0); NEUTROPHIL# 4.5 X10e3 (1.5-7.1); NEUTROPHIL% 58.8 % (40-75); PLATELET COUNT 95 X10e3 (140-420); RED CELL DISTRIBUTION WIDTH 13.6 % (11.0-15.5); WHITE BLOOD COUNT 7.6 X10e3 (4.0-10.5)
[2017-01-06 06:47] LABS: DIFF IND YES
[2017-01-06 06:56] LABS: ANISOCYTOSIS SL; HYPOCHROMIA SL; PLATELET ESTIMATE DECREASED (NORMAL)
[2017-01-06 06:57] LABS: OVALOCYTES PRESENT; POIKILOCYTOSIS SL
[2017-01-06 07:11] LABS: ALBUMIN SERUM 2.6 g/dL (3.5-5.0); BILIRUBIN,TOTAL 1.3 mg/dL (0.2-2.0); BUN/CREATININE RATIO 24.28; CALCIUM SERUM 8.1 mg/dL (8.4-10.2); CREATININE SERUM 1.4 mg/dL (0.6-1.4); GLOM FILT RATE Estimated 55.8 mL/min (>60); MAGNESIUM 1.7 mg/dL (1.6-3.0); PHOSPHOROUS 2.7 mg/dL (2.5-4.6); POTASSIUM 3.5 mmol/L (3.5-5.1); PROTEIN TOTAL SERUM 5.1 g/dL (6.0-8.3)
[2017-01-07 06:27] LABS: BASOPHIL% 0.4 % (0-2.5); EOSINOPHIL# 0.5 X10e3 (0-0.7); EOSINOPHIL% 6.3 % (0.0-7.0); HEMATOCRIT 30.2 % (38.0-50.0); HEMOGLOBIN 10.2 gm/dL (13.0-16.0); LYMPHOCYTE# 1.1 X10e3 (1.0-3.5); LYMPHOCYTE% 14.2 % (17.0-45.0); MEAN CELL VOLUME 98.4 FL (83-96); MEAN CORPUSCULAR HEMOGLOBIN 33.2 PG (28-34); MEAN CORPUSCULAR HGB CONC 33.7 g/dL (30-36); MEAN PLATELET VOLUME 7.5 FL (6.5-11.5); MONOCYTE# 0.9 X10e3 (0-1.0); MONOCYTE% 11.2 % (3.0-12.0); NEUTROPHIL# 5.4 X10e3 (1.5-7.1); NEUTROPHIL% 67.9 % (40-75); PLATELET COUNT 91 X10e3 (140-420); RED BLOOD COUNT 3.07 X10e (3.90-5.60); RED CELL DISTRIBUTION WIDTH 13.5 % (11.0-15.5); WHITE BLOOD COUNT 7.9 X10e3 (4.0-10.5)
[2017-01-07 06:28] LABS: DIFF IND NO
[2017-01-07 07:09] LABS: ALBUMIN SERUM 2.5 g/dL (3.5-5.0); CALCIUM SERUM 7.8 mg/dL (8.4-10.2); GLOM FILT RATE Estimated 83.8 mL/min (>60); MAGNESIUM 1.9 mg/dL (1.6-3.0); PHOSPHOROUS 1.8 mg/dL (2.5-4.6)
[2017-01-08 06:31] LABS: HEMATOCRIT 30.5 % (38.0-50.0); HEMOGLOBIN 10.4 gm/dL (13.0-16.0); MEAN CORPUSCULAR HEMOGLOBIN 33.4 PG (28-34); MEAN CORPUSCULAR HGB CONC 34.1 g/dL (30-36); MEAN PLATELET VOLUME 7.8 FL (6.5-11.5); RED BLOOD COUNT 3.12 X10e (3.90-5.60); RED CELL DISTRIBUTION WIDTH 13.4 % (11.0-15.5); WHITE BLOOD COUNT 7.1 X10e3 (4.0-10.5)
[2017-01-08 06:43] LABS: CALCIUM SERUM 8.2 mg/dL (8.4-10.2); GLOM FILT RATE Estimated 83.8 mL/min (>60); POTASSIUM 4.4 mmol/L (3.5-5.1)
[2017-01-08] MEDS ORDERED: VIBRAMYCIN100 M1 PO (18:35)
== END 2017-01-08 19:14 | disposition home or self-care (01) | DRG 208 ==
LOC: CED 18:18 → CEDOF 18:35 → CICCU2 01-04 01:50 → C5C 01-06 20:00
PROVIDERS: Emergency Medicine; Internal Medicine; Physician Assistant Medical
PROC: 5A1945Z Respiratory Ventilation, 24-96 Consecutive Hours (ICD-10-PCS; principal; 2017-01-03)
PROC: 0BH17EZ Insertion of Endotracheal Airway into Trachea, Via Natural or Artificial Opening (ICD-10-PCS; 2017-01-03)
PROC: 05HM33Z Insertion of Infusion Device into Right Internal Jugular Vein, Percutaneous Approach (ICD-10-PCS; 2017-01-03)
PROC: B543ZZA Ultrasonography of Right Jugular Veins, Guidance (ICD-10-PCS; 2017-01-03)
DX: J96.00 Acute respiratory failure, unspecified whether with hypoxia or hypercapnia (principal); N17.0 Acute kidney failure with tubular necrosis; J15.6 Pneumonia due to other Gram-negative bacteria; D69.6 Thrombocytopenia, unspecified; E87.2 Acidosis; K74.60 Unspecified cirrhosis of liver; N18.3 Chronic kidney disease, stage 3 (moderate); F17.210 Nicotine dependence, cigarettes, uncomplicated; D53.9 Nutritional anemia, unspecified; M54.5 Low back pain; F51.04 Psychophysiologic insomnia; Z86.19 Personal history of other infectious and parasitic diseases; K80.80 Other cholelithiasis without obstruction; M81.0 Age-related osteoporosis without current pathological fracture; N40.0 Benign prostatic hyperplasia without lower urinary tract symptoms; Z91.14 Patient's other noncompliance with medication regimen; R31.29 Other microscopic hematuria; Z96.652 Presence of left artificial knee joint; Z96.642 Presence of left artificial hip joint; K72.90 Hepatic failure, unspecified without coma
CPT/HCPCS: 31500; 36600; 70450; 71010; 76770; 80048; 80053; 80076; 80307; 81003; 82140; 82550; 82553; 82570; 82803; 82947; 83605; 83735; 84100; 84300; 84484; 85025; 85027; 85610; 85730; 87040; 87070; 87077; 87186; 87205; 89190; 93005; 94002; 94003; 94760; 97116; 97163; 97167; 97530; 97535; 99291; C9113; G0480; G8978-GP; G8979-GP; G8987-GO; G8988-GO; J2250; J2543; J3010; J3475; J3480; J7060

== ENCOUNTER → 2017-03-22 | Outpatient (CLI) | payer MEDICARE, BC ==
[~2017-03-22] MED LIST changes: +VIBRAMYCIN100 M1 PO
--- NOTE | ~2017-03-22 | US77 ---
[facility] A Service of [facility] RADIOLOGY TEXT RESULTS PATIENT: SUNSHINE CARTER LOCATION: [facility] : 60 UNIT #: [id number] AGE: [address]: Mingo Saavedra MD SEX: M ORDER DR: [id number] [facility] [address] [facility] [place], [place] [address] [id number] MR#: [id number] Acc #: [id number] NAME: SUNSHINE CARTER : 1960 SEX: M STUDY DATE/TIME: 03/22/2017 12:22 UNIT: [facility] ROOM: STUDY DESCRIPTION: US Kidney Bilateral Complete Attending Physician: Coby Saavedra M.D. Referring Physician: Coby Saavedra M.D. Ordering Physician: Coby Saavedra M.D. Primary Care Physician: Cecilio Andujar M.D. MEDICAL IMAGING REPORT This report is preliminary unless electronic signature is present EXAM Renal ultrasound, 03/22/2017. HISTORY Acute renal failure, abnormal renal function tests on 03/05/2017. Elevated BUN of 30, elevated creatinine of 2.78. Abnormally low GFR of 24. FINDINGS The right kidney measures 10.1 cm while the left kidney measures 10.3 cm in longitudinal dimensions. There is no evidence of hydronephrosis or nephrolithiasis. There are 2 cysts on the left kidney measuring 1 cm and 1.4 cm respectively. No solid mass lesions are identified. There is normal renal cortical echogenicity. Images of the bladder are normal. IMPRESSION 1. Left renal cysts. Otherwise, negative renal ultrasound. 2. Images of the bladder are normal. Dictated by... Salvador Hurt M.D. THIS IS AN ELECTRONICALLY VERIFIED REPORT Salvador Hurt M.D. at 03/23/2017 2:16 PM JUS/kian TD: 03/23/2017 01:49 JOB #: [id number] MEDICAL IMAGING REPORT Page 1 of 1 COPY
[2017-03-22 14:09] LABS: CREATININE,RANDOM URINE 310 mg/dL; SODIUM URINE RANDOM 29 mmol/L; TOTAL PROTEIN,RANDOM URINE 17 mg/dl (<10)
[2017-03-22 14:14] LABS: BUN/CREATININE RATIO 18.88; CALCIUM SERUM 8.9 mg/dL (8.4-10.2); CREATININE SERUM 0.9 mg/dL (0.6-1.4); GLOM FILT RATE Estimated 95.1 mL/min (>60); POTASSIUM 4.1 mmol/L (3.5-5.1)
== END | disposition home or self-care (01) ==
LOC: CWCC 11:57 → CLAB 11:57 → CWCC 12:45
PROVIDERS: Internal Medicine Nephrology
DX: N17.9 Acute kidney failure, unspecified (principal); N28.1 Cyst of kidney, acquired
CPT/HCPCS: 36415; 76770; 80048; 82570; 84156; 84300; 86334